=== PATIENT | female | born 1990 | race Caucasian/White ===

== ENCOUNTER 2017-04-10 10:27 | Inpatient (IN) | payer MEDICAID ==
[~2017-04-10] VITALS: Ht 152.4 cm; Wt 75.9 kg
[2017-04-10 08:54] VITALS: BP 95/54; PULSE 70; RESP 17
[2017-04-10 11:15] VITALS: BP 104/56; PULSE 75; RESP 20
[2017-04-10] MEDS ORDERED: CEFAZOLIN 2 GM/50 ML (PMX) 50 ML IV SCH (11:30)
[2017-04-10] MEDS ORDERED: OXYTOCIN 30 UNITS/LR 500 ML IV SCH (11:30)
[2017-04-10] MEDS ORDERED: CARBOPROST 250 MCG INJ IM PRN ×2 (11:30→14:00)
[2017-04-10] MEDS ORDERED: MISOPROSTOL 200 MCG TAB PR PRN ×2 (11:30→14:00)
[2017-04-10] MEDS ORDERED: OXYTOCIN 30 UNITS/LR 500 ML IV PRN ×2 (11:30→14:00)
[2017-04-10] MEDS ORDERED: METHYLERGONOVINE 0.2 MG INJ IM PRN ×2 (11:30→14:00)
[2017-04-10 11:34] LABS: ADD SCAN DIFF NO
[2017-04-10] MEDS: LACTATED RINGER'S 1,000 ML IV SCH ×4 (11:35→20:10)
[2017-04-10 11:46] LABS: BASOPHILS % 0.1 % (0.0-2.0); EOSINOPHILS # 0.1 10^3/ul (0.0-0.5); EOSINOPHILS % 0.6 % (0.0-7.0); HEMATOCRIT 33.7 % (37.0-47.0); HEMOGLOBIN 11.5 g/dl (12.0-16.0); LYMPHOCYTES # 1.5 10^3/ul (0.8-2.9); LYMPHOCYTES % 15.6 % (15.0-51.0); MEAN CORPUSCULAR HEMOGLOBIN 31.9 pg (29.0-33.0); MEAN CORPUSCULAR HGB CONC 34.1 g/dl (32.0-37.0); MEAN CORPUSCULAR VOLUME 93.4 fl (82.0-101.0); MEAN PLATELET VOLUME 9.7 fl (7.4-10.4); MONOCYTE # 0.6 10^3/ul (0.3-0.9); MONOCYTES % 6.3 % (0.0-11.0); NEUTROPHIL # 7.1 10^3/ul (1.6-7.5); NEUTROPHILS % 76.1 % (39.0-77.0); PLATELET COUNT 174 10^3/UL (140-415); RED BLOOD COUNT 3.61 10^6/ul (4.20-5.40); RED CELL DISTRIBUTION WIDTH 13.3 % (11.5-14.5); WHITE BLOOD COUNT 9.4 10^3/ul (4.8-10.8)
[2017-04-10 12:20] LABS: INR 0.99; PROTIME 13.1 Sec (12.2-14.2)
[2017-04-10] MEDS ORDERED: EPHEDrine SULFATE 50 MG/5 ML SYG ONE (12:21)
[2017-04-10] MEDS ORDERED: OXYTOCIN 30 UNITS/LR 500 ML IV ONE (12:21)
[2017-04-10] MEDS ORDERED: METOCLOPRAMIDE 10 MG INJ ONE (12:22)
[2017-04-10] MEDS ORDERED: morphine SULFATE/PF (10 MG/10 ML) INJ ONE (12:22)
[2017-04-10] MEDS ORDERED: ONDANSETRON 4 MG INJ ONE (12:22)
[2017-04-10] MEDS ORDERED: OXYTOCIN 10 UNIT INJ ONE (12:22)
[2017-04-10 13:05] LABS: PARTIAL THROMBOPLASTIN TIME 26.1 Sec (25.0-35.0)
--- NOTE | 2017-04-10 13:08 | PREOPHP ---
DATE OF ADMISSION: 04/10/2017 HISTORY OF PRESENT ILLNESS: Ms. Quin Sen is a 27-year-old 3, para 2, EDC 04/15/2017, i ntrauterine at 39 weeks gestational age, admitted today for an elective repeat de goldy, declined . She denies any contractions, vaginal bleeding, or discharge. Her c are took place at [facility]. PAST MEDICAL HISTORY: None. MEDICATIONS: vitamins. PAST SURGICAL HISTORY: Previous x2. OBSTETRIC HISTORY: Previous x2. GYNECOLOGIC HISTORY: Twelve regular, 3 to 4 days. Denies any sexually transmitted disease. Sexual ly active with 1 partner. SOCIAL HISTORY: Denies any smoking, drugs, or alcohol. FAMILY HISTORY: None. PHYSICAL EXAMINATION: HEENT: Within normal. LUNGS: CTA bilateral. CARDIOVASCULAR: S1, S2. Regular rhythm. ABDOMEN: Gravid, nontender. Negative CVA bilateral. EXTREMITIES: Negative edema. No calf tenderness. PELVIC: Vaginal exam deferred. ASSESSMENT: A 27-year-old 3, para 2, intrauterine at 39 weeks gestational age. P revious section x2. Desires elective repeat delivery. Declines vaginal aft er . PLAN: Consent for repeat delivery. Risks, benefits, and alternatives explained. All ques tions were answered. Dictated By: MARGARITO LEAVITT/TARYN Conf#: [id number] DID#: [id number]
[2017-04-10] MEDS ORDERED: MIDAZOLAM 1 MG/ML 2 ML INJ ONE (13:10)
[2017-04-10] MEDS ORDERED: DIPHENHYDRAMINE 50 MG INJ IV PRN (14:00)
[2017-04-10] MEDS ORDERED: morphine SULFATE/PF (10 MG/10 ML) INJ SPINAL ONE (14:00)
[2017-04-10] MEDS ORDERED: NALOXONE (0.4 MG/ML) INJ IV PRN (14:00)
[2017-04-10] MEDS ORDERED: ONDANSETRON 4 MG INJ IV PRN (14:00)
[2017-04-10] MEDS ORDERED: EPHEDrine SULFATE 50 MG/5 ML SYG IV PRN (14:00)
[2017-04-10] MEDS ORDERED: OXYCODONE/ACETAMINOPHEN (5/325) TAB PO PRN ×2 (14:00)
[2017-04-10] MEDS ORDERED: HYDROmorphONE 1 MG/ML SYG IV PRN ×2 (14:00)
[2017-04-10] MEDS ORDERED: LANOLIN 7 GM TUBE TOP PRN (14:00)
[2017-04-10] MEDS ORDERED: morphine 2 MG INJ IV PRN ×2 (14:00)
[2017-04-10] MEDS: CEFAZOLIN 2 GM/50 ML (PMX) 50 ML IV SCH ×2 (14:00→21:55)
[2017-04-10 16:50] VITALS: BP 115/64; PULSE 67; RESP 17
[2017-04-10] MEDS ORDERED: IBUPROFEN 600 MG TAB PO SCH (18:00)
[2017-04-10 20:20] VITALS: BP 118/63; PULSE 69; RESP 20
[2017-04-10] MEDS: SENNA/DOCUSATE NA (8.6MG/50MG) TAB PO SCH (21:55)
[2017-04-11] MEDS: LACTATED RINGER'S 1,000 ML IV SCH ×2 (04:03→12:12)
[2017-04-11 04:10] VITALS: BP 98/57; PULSE 69; RESP 20
[2017-04-11] MEDS: KETOROLAC 30 MG INJ IV PRN ×2 (05:26→12:11)
[2017-04-11] MEDS: CEFAZOLIN 2 GM/50 ML (PMX) 50 ML IV SCH (05:26)
[2017-04-11] MEDS ORDERED: CEFAZOLIN 2 GM/50 ML (PMX) 50 ML IVPB SCH ×2 (07:30→13:00)
[2017-04-11 07:40] VITALS: BP 95/54; PULSE 70; RESP 17
[2017-04-11 08:09] LABS: ADD SCAN DIFF NO
[2017-04-11 08:12] LABS: BASOPHILS % 0.2 % (0.0-2.0); EOSINOPHILS # 0.1 10^3/ul (0.0-0.5); EOSINOPHILS % 0.4 % (0.0-7.0); HEMATOCRIT 31.3 % (37.0-47.0); HEMOGLOBIN 10.7 g/dl (12.0-16.0); LYMPHOCYTES # 1.5 10^3/ul (0.8-2.9); LYMPHOCYTES % 13.4 % (15.0-51.0); MEAN CORPUSCULAR HEMOGLOBIN 32.4 pg (29.0-33.0); MEAN CORPUSCULAR HGB CONC 34.2 g/dl (32.0-37.0); MEAN CORPUSCULAR VOLUME 94.8 fl (82.0-101.0); MEAN PLATELET VOLUME 9.9 fl (7.4-10.4); MONOCYTE # 0.7 10^3/ul (0.3-0.9); MONOCYTES % 5.8 % (0.0-11.0); NEUTROPHIL # 9.1 10^3/ul (1.6-7.5); NEUTROPHILS % 79.5 % (39.0-77.0); PLATELET COUNT 159 10^3/UL (140-415); RED CELL DISTRIBUTION WIDTH 13.2 % (11.5-14.5); WHITE BLOOD COUNT 11.5 10^3/ul (4.8-10.8)
[2017-04-11] MEDS: SENNA/DOCUSATE NA (8.6MG/50MG) TAB PO SCH ×2 (09:29→20:40)
[2017-04-11 12:11] VITALS: BP 105/51; PULSE 75; RESP 18
--- NOTE | 2017-04-11 13:53 | QN ---
Documentation Comment pod 1 patient seen and evaluated no complaints vs stable afebrile ab soft nt uterine fundus firm no distention dressing clean extremity no edema no calf tenderness a/ sp cd with btl pod 1 doing well p/ iron supplement MARGARITO JUNIOR MD Apr 11, 2017 13:53
[2017-04-11 15:50] VITALS: BP 98/55; PULSE 77; RESP 18
--- NOTE | 2017-04-11 15:57 | OPR ---
DATE OF OPERATION: 04/10/2017 PREOPERATIVE DIAGNOSIS: Intrauterine at 39 weeks gestational age, previous deliv kadeem x1, multiparous, desires elective repeat delivery with bilateral tubal sterilization. POSTOPERATIVE DIAGNOSIS: Intrauterine at 39 weeks gestational age, previous deli very x1, multiparous, desires elective repeat delivery with bilateral tubal sterilization. OPERATION PERFORMED: Repeat low transverse delivery with bilateral tubal ligation, modifie d Cynthia method with omentectomy. SURGEON: Rubin Villatoro MD. ENTREPRENEURIAL FINANCE PROFESSOR: Dr. Sanders. ANESTHESIA: Spinal. COMPLICATIONS OF PROCEDURE: None. ESTIMATED BLOOD LOSS: 500 mL. FINDINGS: A viable male, 9 and 9 respectively at 1 and 5 minutes. Weight 3335 grams. DESCRIPTION OF PROCEDURE: After explaining the risks, benefits and alternatives, the patient and c onsent signed in chart, the patient was taken to the operating room where spinal anesthesia was foun d to be adequate. She was then prepared and draped in normal sterile fashion in dorsal supine posit ion with a leftward tilt. A Pfannenstiel skin incision was then made with a scalpel and carried to the underlying layer of fascia. The fascia was incised in the midline and incision was extended lat erally with Purdy scissors. The superior aspect of the fascial incision was grasped with curved clam ps, elevated and the underlying rectus muscles dissected off bluntly. Attention was then turned to the inferior aspect of the incision, which in similar fashion was grasped, tented up with curved cla mps and the rectus muscles dissected off bluntly. The rectus muscles were then in midline , peritoneum identified, tented up with Metzenbaum scissors. The peritoneal incision was extended s uperiorly, inferiorly with good visualization of bladder. At this point, the dense adhesions betwee n the omentum and the anterior uterus where the omentum was cauterized and coagulated with good hemo stasis and sent to pathology. At this point, the bladder blade was then inserted and the vesicouter ine peritoneum identified, grasped with pickups and entered sharply with Metzenbaum scissors. This incision was extended laterally and the bladder flap created digitally. The bladder blade was then reinserted and was incised in transverse fashion with a scalpel. The uterine incision was extended laterally. The bladder blade was removed and the 's head delivered atraumatically. The nose and mouth were suctioned and cord clamped and cut. The infant was handed off to awaiting pediatrici an. The placenta was then removed. The uterus was exteriorized and cleared of all clots and debris . The uterine incision was repaired with 1-0 chromic in a running locked fashion. A second layer o f same suture was used for imbrication obtaining excellent hemostasis. At this point, a Temple clamp was used to grasp the left tube approximately 4 cm from the cornual r egion. A 3 cm segment of tube was ligated with a free tie of plain gut and excised. Good hemostasi s was noted. Similarly, the right fallopian tube was excised. The uterus was returned to the abdom en. The gutters were cleared of all clots. Good hemostasis was assured from the tubal ligation sit e and from the omentectomy. The peritoneum was reapproximated with 2-0 plain gut in interrupted fas hion. The fascia was reapproximated with 0 Vicryl in a running fashion. The subcutaneous tissue wa s reapproximated with 2-0 plain gut in a running fashion. The skin was closed with sienna. The pa tient tolerated procedure well. Sponge, lap and needle counts correct x2. The patient was taken to recovery room in stable condition. Dictated By: RUBIN LEAVITT/TARYN Conf#: [id number] DID#: [id number]
[2017-04-11] MEDS: IBUPROFEN 600 MG TAB PO SCH ×2 (17:47→23:49)
[2017-04-11 19:30] VITALS: BP 108/53; PULSE 76
[2017-04-11] MEDS: FERROUS SULFATE (EC) 325 MG TAB PO SCH (20:40)
[2017-04-12] MEDS: IBUPROFEN 600 MG TAB PO SCH ×3 (05:38→17:44)
[2017-04-12 08:15] VITALS: BP 114/72; PULSE 72
[2017-04-12] MEDS: FERROUS SULFATE (EC) 325 MG TAB PO SCH ×2 (09:31→21:43)
[2017-04-12] MEDS: SENNA/DOCUSATE NA (8.6MG/50MG) TAB PO SCH ×2 (09:31→21:43)
--- NOTE | 2017-04-12 12:57 | QN ---
Documentation Comment pod 2 patient seen and evaluated no complaints vs stable afebrile ab soft nt uterine fundus firm no distention dressing clean extremity no edema no calf tenderness a/ sp cd with btl pod 2 doing well p/ remove dressing today MARGARITO JUNIOR MD Apr 12, 2017 12:56
[2017-04-12 16:20] VITALS: BP 118/77; PULSE 36; RESP 18
[2017-04-12 19:35] VITALS: BP 119/63; PULSE 78; RESP 19
[2017-04-13] MEDS: IBUPROFEN 600 MG TAB PO SCH ×4 (00:12→17:54)
[2017-04-13 03:40] VITALS: BP 112/65; PULSE 73; RESP 18
[2017-04-13 08:45] VITALS: BP 113/64; PULSE 72; RESP 20
[2017-04-13] MEDS: SENNA/DOCUSATE NA (8.6MG/50MG) TAB PO SCH (09:08)
[2017-04-13] MEDS: FERROUS SULFATE (EC) 325 MG TAB PO SCH (09:08)
--- NOTE | 2017-04-13 13:13 | PD.PPDC ---
[employer] Discharge Instruction Condition Patient Condition: Good Diet Diet: Resume Regular Diet Activity/Restrictions Restrictions: No Exercising No Lifting No Driving No Sexual Activity Nothing in the Vagina No [place] No Tampons, douche Follow-up Follow-up with Physician: 3 Provider Information: f/u office this monday to remove sienna Return to clinic for BREAKFAST ATTENDANT Instructions: Fever greater than 101 Chills Worsening abdominal pain Excessive Vaginal Bleeding More than 2 pads per hour Unable to tolerate diet OB Instructions: Breast Tenderness Depression Blurried Vision Headache Surgical Instructions: Incisional Drainage Incisional Redness MARGARITO JUNIOR MD Apr 13, 2017 13:13
--- NOTE | 2017-04-13 13:20 | DS ---
DATE OF ADMISSION: 04/10/2017 DATE OF DISCHARGE: DISCHARGE SUMMARY: Ms. Quin Sen was admitted on 04/10/2017. Discharge 04/13/2017/ PRIMARY DIAGNOSES: Intrauterine at 39 weeks gestational age, previous x1 Multiparity. Desires electi ve delivery with bilateral tubal sterilization. PROCEDURE: Repeat low transverse delivery with bilateral tubal ligation, Cynthia method. CONDITION ON DISCHARGE: Stable. ACTIVITY: None per vagina, no lifting x6 weeks. DIET: Regular. MEDICATIONS ON DISCHARGE 1. Motrin. 2. Iron 3. Colace. HOSPITAL COURSE: Ms. Quin Sen is a 27-year-old 3, para 3, status post repeat low trans verse delivery with bilateral tubal ligation on 04/10/2017. She had a viable male, Apgars 9 and 9 respectively at 1 and 5 minutes, weight 3335 grams. She had an uneventful postop day 1, 2, and 3. Her incision is clean, dry, and intact. She is ambulating, tolerating diet, positive flatul ence, positive bowel movement. She will follow up in the office this Monday to remove her sienna. Dictated By: MARGARITO LEAVITT/TARYN Conf#: [id number] DID#: [id number]
[2017-04-13 16:00] VITALS: BP 102/59; PULSE 77; RESP 16
[2017-04-13 20:00] VITALS: BP 117/71; PULSE 68; RESP 18
== END 2017-04-13 20:40 | disposition home or self-care (01) | DRG 766 ==
LOC: L-D 10:27 → PP1 16:55
PROVIDERS: ADMIT Obstetrics & Gynecology; ATTEND Obstetrics & Gynecology
PROC: 0UL70ZZ Occlusion of Bilateral Fallopian Tubes, Open Approach (ICD-10-PCS; 2017-04-10)
PROC: 10D00Z1 Extraction of Products of Conception, Low, Open Approach (ICD-10-PCS; principal; 2017-04-10 12:30)
DX: O34.211 Maternal care for low transverse scar from previous cesarean delivery (principal); Z30.2 Encounter for sterilization; Z3A.39 39 weeks gestation of pregnancy; Z37.0 Single live birth
CPT/HCPCS: 85025; 85610; 85730; 86592; 86850; 86900; 86901; 87340; 88302; 88305; 94760; 99464; J0690; J1200; J1885; J2250; J2274; J2405; J2590; J2765; J7120